=== PATIENT | female | born 1995 | race Caucasian/White ===

== ENCOUNTER 2021-08-01 18:25 | Emergency (ER) | payer OTHER, SELFPAY ==
--- NOTE | ~2021-08-01 | CT_ITS ---
EXAMINATION: CT ABDOMEN AND PELVIS WITHOUT CONTRAST CLINICAL INFORMATION: Lower abdominal pain COMPARISON: None TECHNIQUE: Multidetector volumetric imaging was performed from the superior aspect of the liver through the pubic symphysis. Sagittal and coronal reformatted images were obtained on the technologist's workstation. This CT examination was performed using dose optimization techniques as appropriate, variously including the following: *Automated exposure control *Adjustment of mA and/or kV according to patient size (this includes techniques or standardized protocols for targeted exams where dose is matched to indication/reason for exam; i.e. extremities or head) *Use of iterative reconstruction technique DLP: 713 mGy-cm FINDINGS: LUNG BASES: The visualized lung bases are unremarkable. LIVER, GALLBLADDER, AND BILIARY TREE: The liver is mildly enlarged at 18 cm in greatest length and demonstrates slightly decreased attenuation compared with the spleen suggesting hepatic steatosis. No focal hepatic lesion or biliary ductal dilatation is present. The gallbladder is unremarkable with no evidence of radiopaque gallstones, gallbladder wall thickening, or obvious pericholecystic inflammatory changes. PANCREAS: Unremarkable. SPLEEN: Unremarkable. ADRENAL GLANDS: Unremarkable. KIDNEYS AND URETERS: The kidneys are normal in size, shape, and attenuation. No hydronephrosis, hydroureter, or calculi seen. No perinephric stranding. BLADDER: Unremarkable. GASTROINTESTINAL TRACT: The small and large bowel are unremarkable. The appendix is unremarkable. ABDOMINAL WALL: No significant hernia is appreciated. LYMPH NODES: Normal. VASCULAR: Unremarkable. PELVIC VISCERA: An anteverted uterus is present containing an IUD. An abnormal adnexal mass or free intraperitoneal fluid is not seen. There is some mild inflammatory changes in the fat anterior to the uterus of uncertain significance. An abnormal fluid collection is not seen. OSSEOUS STRUCTURES: There is grade 1 anterolisthesis of L5 upon S1 with bilateral pars intraarticularis defects at L5. CT/CT abdomen pelvis wo con IMPRESSION: A definite etiology for the patient's lower abdominal pain is not found. Incidental note made of mildly enlarged fatty liver and some inflammatory changes in the fat anterior to the uterus of questionable significance. There is grade 1 anterolisthesis with pars defects at L5-S1. Fleischner guidelines were followed.
[2021-08-01 18:31] VITALS: BP 147/77; PULSE 105; RESP 18; TEMP 37.1; O2SAT 100; BMI 38.7
[2021-08-01 21:50] VITALS: BP 139/77; PULSE 125; RESP 18; TEMP 37.2; O2SAT 99
[2021-08-01 22:06] LABS: Hematocrit 37.8 % (37.0-47.0); Hemoglobin 12.6 g/dl (12.0-16.0); Mean Corpuscular HGB Conc 33.3 g/dl (31.0-35.0); Mean Corpuscular Hemoglobin 28.8 pg (27.0-33.0); Mean Corpuscular Volume 86.5 fL (80.0-98.0); Mean Platelet Volume 10.5 fL (9.4-12.3); Platelet Count 259 X10*3/uL (160-400); Red Blood Count 4.37 X10*6/uL (4.20-5.50); Red Cell Distribution Width 12.3 % (11.0-16.0); White Blood Count 14.8 X10*3/uL (4.8-10.8)
[2021-08-01 22:18] LABS: Alanine Aminotransferase 17 U/L (0-31); Albumin Level 4.2 g/dL (3.5-5.0); Alkaline Phosphatase 76 U/L (39-117); Anion Gap 15 (12-20); Aspartate Amino Transferase 15 U/L (5-31); Blood Urea Nitrogen 14 mg/dL (9-16); Carbon Dioxide 20 mmol/L (22-29); Chloride 106 mmol/L (96-108); Estimated Glomerular Filt Rate > 60; Glucose Random 104 mg/dL (60-115); Potassium 3.7 mmol/L (3.3-5.1); Sodium 137 mmol/L (135-145); Total Protein 7.2 g/dL (6.5-8.0)
[2021-08-01 22:56] VITALS: BP 140/90; PULSE 100; RESP 18; O2SAT 100
[2021-08-01 23:04] LABS: Appearance Urine HAZY; Color Urine YELLOW; Glucose Urine UA NEG (NEG); Leukocyte Esterase Urine TRACE (NEG); Nitrite Urine NEG (NEG); Specific Gravity - Urine >= 1.030 (1.005-1.025); Urine Blood NEG (NEG); Urine Ketones 40 MG/DL (NEG); Urine Protein TRACE MG/DL (NEG-TRACE)
[2021-08-01 23:06] LABS: UPreg QC Valid YES; Urine Pregnancy NEGATIVE (NEGATIVE)
[2021-08-01 23:10] LABS: Bacteria Urine 2+ /LPF; Mucus Urine 2+ /LPF; Squamous Epithelial Cell Urine 2+ /LPF
[2021-08-01] MEDS: Ketorolac Tromethamine 30 MG/ML VIAL IM (23:40)
--- NOTE | 2021-08-01 23:51 | ED_ITS ---
HPI - General Adult General Chief complaint: Abdominal Pain Stated complaint: lower abdominal pain Time Seen by Provider: 08/01/21 23:03 Source: patient Mode of arrival: ambulatory Limitations: no limitations History of Present Illness HPI narrative: 26 yold female presents to the ED for lower abdominal pain and vaginal bleeding since until 07/30. Patient states bleeding resolved. Patient states presently no vaginal bleeding, fever, chills, vagina lesions, vaginal discharage of flank pain. Patient denies any decrease in appettie Related Data Previous Rx's Medication Instructions Recorded cephalexin 500 mg capsule 500 mg PO QID 7 Days #28 cap 08/02/21 doxycycline hyclate 100 mg capsule 100 mg PO BID 7 Days #14 cap 08/02/21 naproxen 500 mg tablet 500 mg PO BID PRN 10 Days #20 tab 08/02/21 Allergies Allergy/AdvReac Type Severity Reaction Status Date / Time No Known Allergies Allergy Verified 08/01/21 18:30 [No Known Allergies*] Review of Systems Review of Systems: lower abdominal pain Yes all other systems are reviewed and are negative [facility] Social History Social History Advance Directives: No Advance Directives Information Provided: Yes Physical Exam ED Vital Signs: Vital Signs - 24 hr 08/01/21 18:31 08/01/21 21:50 08/01/21 22:56 Temperature 98.7 F 99 F Pulse Rate 105 H 125 H 100 Respiratory Rate 18 18 18 Blood Pressure 147/77 H 139/77 140/90 H Pulse Oximetry 100 99 100 08/02/21 00:45 Temperature Pulse Rate 106 H Respiratory Rate 20 Blood Pressure 130/75 Pulse Oximetry 98 BMI result Body Mass Index 38.7 Const General: cooperative, healthy appearing, comfortable, no acute distress, well developed, alert and awake Orientation/consciousness: oriented to time and patient oriented x3 HENMT Head: Yes normal to inspection, Yes No palpable skull fracture present, Yes normocephalic, Yes atraumatic and No abrasion Eyes General: appearance normal, both eyes and all related structures Neck Neck: Yes normal visual inspection, Yes full ROM, Yes no lymphadenopathy, Yes no meningeal signs, Yes trachea midline, Yes supple, No anterior neck swelling and No tender Chest Chest palpation & inspection: normal inspection of the chest and normal palpation of entire chest wall Resp Effort & Inspection: normal respiratory effort and able to speak in complete sentences Auscultation: clear to auscultation bilaterally Cardio Jugular venous distension: no JVD Heart sounds: S1 normal heart sound present and S2 normal heart sound present GI Inspection: Yes normal to inspection and No abdominal wall ecchymosis Palpation (GI): Soft to palpation, not firm, Tenderness to palpation present (GI) suprapubicly; Negative for not in the epigastrum, not in the LLQ, not in the RLQ, not in the LUQ, not in the RUQ, not at McBurney's point, not periumbilically, Shipley's sign negative, obturator sign negative, psoas sign negative, with no rebound tenderness and Rovsing's sign negative, no guarding and not rigid General: No CVA tenderness Back/Spine/Pelvis Back: No CVA tenderness, No mass, No erythema, No warmth, No sacral edema, No ecchymosis and No back tenderness Skin General skin exam: no rashes or lesions noted and elasticity normal Neuro General: oriented to time, patient oriented x3, gait normal, no meningeal signs and CN's II-XI intact bilaterally Cranial nerves: Yes CN's II-XII intact bilaterally Extrem General: Yes normal to inspection and Yes full ROM Psych Appearance: grossly normal, well kempt and not disheveled Course Course Course Narrative: labs, uA, and UCG ordered Reevaluation(s) Reevaluation #1: patient has WBC of 14, 000 with UTI. Sent for Abdominal CT can which shows anterior uterine wall slight inflammation. IUD is in utuerus and negative for perforation or abdnormal bleeding. Time: 00:01 Reevaluation #2: Abdominal CT scan shows no perforation of uterus or misplacement of IUD. No intra abdominal/pelvic emergent abdominal eitiology. Pelvic exam positive for green discharge. negative CMT or vaginal lesions. patient admits pmh of chlamydia and gonorheaa in the past. Will treat emperically and give antiibiotics for UTI. not suspecting tubo ovarian abscess or torsion. patient given copy of labs and imaging to follow up with PCP and OBGYN. Time: 01:04 Medical Decision Making MDM Narrative Medical decision making narrative: UTI Lab Data Result diagrams: 08/01/21 21:53 08/01/21 21:53 Labs: Lab Results 08/01/21 08/01/2108/01/22 Range/Units 21:53 21:53 22:57 WBC 14.8 H (4.8-10.8) X10*3/uL RBC 4.37 (4.20-5.50) X10*6/uL Hgb 12.6 (12.0-16.0) g/dl Hct 37.8 (37.0-47.0) % MCV 86.5 (80.0-98.0) fL MCH 28.8 (27.0-33.0) pg MCHC 33.3 (31.0-35.0) g/dl RDW 12.3 (11.0-16.0) % Plt Count 259 (160-400) X10*3/uL MPV 10.5 (9.4-12.3) fL Absolute Nucleated RBC 0.000 (0.0-0.012) X10*3/uL Nucleated RBC % (auto) 0.0 (0.0-0.2) /100WBC Sodium 137 (135-145) mmol/L Potassium 3.7 (3.3-5.1) mmol/L Chloride 106 (96-108) mmol/L Carbon Dioxide 20 L (22-29) mmol/L Anion Gap 15 (12-20) BUN 14 (9-16) mg/dL Creatinine 0.83 (0.5-1.4) mg/dL Estim Creat Clear Calc 113.0 Estimated GFR > 60 Random Glucose 104 (60-115) mg/dL Calcium 9.0 (8.4-10.2) mg/dL Total Bilirubin 1.0 (0.0-1.0) mg/dL AST 15 (5-31) U/L ALT 17 (0-31) U/L Alkaline Phosphatase 76 (39-117) U/L Total Protein 7.2 (6.5-8.0) g/dL Albumin 4.2 (3.5-5.0) g/dL Urine Color YELLOW Urine Appearance HAZY Urine pH 6.0 (5.0-8.0) Ur Specific [place] >= 1.030 H (1.005-1.025) Urine Protein TRACE (NEG-TRACE) MG/DL Urine Glucose (UA) NEG (NEG) MG/DL Urine Ketones 40 (NEG) MG/DL Urine Blood NEG (NEG) Urine Nitrite NEG (NEG) Ur Leukocyte Esterase TRACE H (NEG) Urine RBC 1-4 (0) /HPF Urine WBC 10-14 H (0-4) /HPF Ur Squamous Epith Cells 2+ /LPF Urine Bacteria 2+ /LPF Urine Mucus 2+ /LPF Urine Test (NEGATIVE) 08/01/21 Range/Units 22:57 WBC (4.8-10.8) X10*3/uL RBC (4.20-5.50) X10*6/uL Hgb (12.0-16.0) g/dl Hct (37.0-47.0) % MCV (80.0-98.0) fL MCH (27.0-33.0) pg MCHC (31.0-35.0) g/dl RDW (11.0-16.0) % Plt Count (160-400) X10*3/uL MPV (9.4-12.3) fL Absolute Nucleated RBC (0.0-0.012) X10*3/uL Nucleated RBC % (auto) (0.0-0.2) /100WBC Sodium (135-145) mmol/L Potassium (3.3-5.1) mmol/L Chloride (96-108) mmol/L Carbon Dioxide (22-29) mmol/L Anion Gap (12-20) BUN (9-16) mg/dL Creatinine (0.5-1.4) mg/dL Estim Creat Clear Calc Estimated GFR Random Glucose (60-115) mg/dL Calcium (8.4-10.2) mg/dL Total Bilirubin (0.0-1.0) mg/dL AST (5-31) U/L ALT (0-31) U/L Alkaline Phosphatase (39-117) U/L Total Protein (6.5-8.0) g/dL Albumin (3.5-5.0) g/dL Urine Color Urine Appearance Urine pH (5.0-8.0) Ur Specific [place] (1.005-1.025) Urine Protein (NEG-TRACE) MG/DL Urine Glucose (UA) (NEG) MG/DL Urine Ketones (NEG) MG/DL Urine Blood (NEG) Urine Nitrite (NEG) Ur Leukocyte Esterase (NEG) Urine RBC (0) /HPF Urine WBC (0-4) /HPF Ur Squamous Epith Cells /LPF Urine Bacteria /LPF Urine Mucus /LPF Urine Test NEGATIVE (NEGATIVE) Discharge Plan Discharge Clinical Impression: UTI (urinary tract infection) Patient Disposition: Home, Self-Care Instructions: Urinary Tract Infection in Women (ED) Additional Instructions: Return to the ED for worsening abdominal pain, fever, chills, flank pain, nausea, vomitting, hematuria, vaginal bleeding, flank pain, or any other arsh rning symptoms. Please follow up with your PCP and OBGYN. Prescriptions: New cephalexin 500 mg capsule 500 mg PO QID 7 Days Qty: 28 0RF doxycycline hyclate 100 mg capsule 100 mg PO BID 7 Days Qty: 14 0RF naproxen 500 mg tablet 500 mg PO BID PRN (Reason: pain) 10 Days Qty: 20 0RF Stand Alone Forms: Work/School Release Discharge Date/Time: 08/02/21 01:26 Print Language: Somali
[2021-08-02 00:45] VITALS: BP 130/75; PULSE 106; RESP 20; O2SAT 98
[2021-08-02] MEDS: cefTRIAXone sodium 500 MG, Lidocaine HCl 1 % MPF 1 ML IM (01:23)
[2021-08-02 09:27] LABS: CT PCR NOT DETECTED (Not Detect.); NG PCR DETECTED (Not Detect.)
[2021-08-02 09:48] LABS: BV Int Neg Control Negative (Negative); BV Int Pos Control Positive (Positive)
== END 2021-08-02 01:26 | disposition home or self-care (01) ==
PROVIDERS: Physician Assistant; Emergency Provider Internal Medicine
DX: N39.0 Urinary tract infection, site not specified (principal); R10.30 Lower abdominal pain, unspecified; Z20.2 Contact with and (suspected) exposure to infections with a predominantly sexual mode of transmission
CPT/HCPCS: 36415; 74176; 80053; 81001; 81025; 85027; 87480; 87491; 87510; 87591; 87660; 96372; 99284; J0696; J1885